=== PATIENT | male | born 1975 | race Caucasian/White ===

== ENCOUNTER 2018-08-04 23:18 | Emergency (ER) | payer SELFPAY ==
[~2018-08-04] VITALS: Ht 167.6 cm; Wt 100.0 kg
[2018-08-05] MEDS ORDERED: KETOROLAC 60MG/2ML VIAL IM STA (01:05)
[2018-08-05] MEDS ORDERED: TETANUS, DIPHTHERIA, PERTUSSIS VAC/PF 0.5ML (>7YR OLD) IM ONE (01:15)
[2018-08-05] MEDS ORDERED: LIDOCAINE 1%/EPI 1:100,000 10 ML VIAL IJ ONE (01:15)
[2018-08-05] MEDS ORDERED: BACITRACIN ZINC OINT UDPKT TOP ONE ×2 (01:15)
[2018-08-05] MEDS ORDERED: LIDOCAINE HCL/EPINEPHRINE 1%-EPI 1:100,000 20 ML VIAL INFIL SCH (01:33)
[2018-08-05] MEDS ORDERED: HYDROCODONE/ACETAMINOPHEN 5/325MG TABLET PO STA (04:49)
[2018-08-05 06:24] VITALS: BP 133/76
== END 2018-08-05 06:44 | disposition home or self-care (01) ==
LOC: ER 23:18
DX: L02.31 Cutaneous abscess of buttock (principal); E11.9 Type 2 diabetes mellitus without complications; F12.10 Cannabis abuse, uncomplicated; Z98.890 Other specified postprocedural states
CPT/HCPCS: 10060; 90471; 90715; 96372; 99283; J1885; J3490

== ENCOUNTER 2019-05-10 11:41 | Emergency (ER) | payer SELFPAY ==
[~2019-05-10] VITALS: Ht 172.7 cm; Wt 85.0 kg
[2019-05-10] MEDS ORDERED: SODIUM CHLORIDE 0.9% 1,000 ML IV ONE ×2 (13:09→15:08)
[2019-05-10 13:47] LABS: BG BASE EXCESS -2.3 mmol/L (-2.0-2.0); BG CARBOXYHEMOGLOBIN 1.5 % (0.5-1.5); BG DEOXYHEMOGLOBIN 2.6 % (0.0-5.0); BG FRACTION INSPIRED OXYGEN 21; BG HCO3 ACT 21.9 mmol/L (22.0-26.0); BG METHEMOGLOBIN 0.1 % (0.0-1.5); BG OXYGEN SATURATION 97.4 % (92.0-98.5); BG OXYHEMOGLOBIN 95.8 % (94.0-97.0); BG PCO2 36.1 mmHg (35.0-45.0); BG PO2 90.7 mmHg (75.0-100.0); BG SAMPLE SITE RIGHT RADIAL; BG TOTAL HEMOGLOBIN 15.4 g/dL (12.0-18.0); BG VENT MODE ROOM AIR
[2019-05-10 13:54] LABS: BASOPHILS % 0.8 % (0.0-2.0); EOSINOPHILS % 2.4 % (0.0-5.0); HEMATOCRIT. 44.2 % (42.0-52.0); HEMOGLOBIN. 15.6 g/dL (14.0-18.0); LYMPHOCYTES % 24.9 % (20.0-50.0); MEAN CORPUSCULAR HEMOGLOBIN 30.3 pg (28.0-32.0); MEAN PLATELET VOLUME 7.4 fl (7.4-10.4); MONOCYTES % 4.5 % (2.0-8.0); NEUTROPHILS % 67.4 % (40.0-76.0); PLATELET 268 x1000/uL (130-400); RED BLOOD CELL COUNT 5.14 mill/uL (4.7-6.1)
[2019-05-10 14:03] LABS: CHLORIDE 100 mEq/L (98-107)
[2019-05-10 14:07] LABS: AMYLASE 29 IU/L (25-115)
[2019-05-10] MEDS ORDERED: KETOROLAC 30MG/ML VIAL IV ONE (14:15)
[2019-05-10 14:16] LABS: BETA HYDROXYBUTYRATE 2.1 mMol/L (0.0-0.3)
[2019-05-10] MEDS ORDERED: INSULIN REGULAR (HUMULIN R) UD 100 UNITS/ML SYR IV ONE (15:15)
[2019-05-10 15:42] LABS: CLARITY URINE CLEAR (CLEAR); COLOR URINE YELLOW (YELLOW); KETONES URINE 3+ (NEGATIVE); LEUKOCYTE ESTERASE URINE NEGATIVE (NEGATIVE); NITRITE URINE NEGATIVE (NEGATIVE); OCCULT BLOOD URINE NEGATIVE (NEGATIVE); PROTEIN URINE TRACE (NEGATIVE); SPECIFIC GRAVITY URINE 1.038 (1.005-1.030); UROBILINOGEN URINE 0.2 E.U./dL (0.2-1.0)
[2019-05-10] MEDS ORDERED: INSULIN REGULAR (HUMULIN R) 300UNITS/3ML IV ONE (15:45)
[2019-05-10 17:23] VITALS: BP 125/85
== END 2019-05-10 18:33 | disposition home or self-care (01) ==
LOC: ER 12:12 → CANBEDREQ 20:00
DX: E11.65 Type 2 diabetes mellitus with hyperglycemia (principal); M25.561 Pain in right knee; R53.1 Weakness; Z79.4 Long term (current) use of insulin; Z59.0 Homelessness; F12.90 Cannabis use, unspecified, uncomplicated
CPT/HCPCS: 36415; 36600; 71045; 80053; 81003; 82010; 82150; 82375; 82805; 82962; 83690; 84484; 85025; 93005; 96361; 96374; 96375; 99284; J1815; J1885; J7030

== ENCOUNTER 2019-06-08 18:11 | Emergency (ER) | payer SELFPAY ==
[~2019-06-08] VITALS: Ht 172.7 cm; Wt 72.0 kg
[2019-06-08] MEDS ORDERED: SODIUM CHLORIDE 0.9% 1,000 ML IV ONE (18:48)
[2019-06-08 19:04] LABS: BASOPHILS % 1.1 % (0.0-2.0); EOSINOPHILS % 7.5 % (0.0-5.0); HEMATOCRIT. 40.5 % (42.0-52.0); HEMOGLOBIN. 14.5 g/dL (14.0-18.0); LYMPHOCYTES % 26.8 % (20.0-50.0); MEAN CORPUSCULAR HEMOGLOBIN 31.1 pg (28.0-32.0); MEAN CORPUSCULAR VOLUME 86.6 fL (80.0-94.0); MEAN PLATELET VOLUME 7.2 fl (7.4-10.4); MONOCYTES % 7.5 % (2.0-8.0); NEUTROPHILS % 57.1 % (40.0-76.0); PLATELET 267 x1000/uL (130-400); RED BLOOD CELL COUNT 4.67 mill/uL (4.7-6.1); RED CELL DISTRIBUTION WIDTH 13.8 % (11.6-14.6)
[2019-06-08 19:08] LABS: CHLORIDE 98 mEq/L (98-107)
[2019-06-08 19:11] LABS: AMYLASE 18 IU/L (25-115); ETHANOL BLOOD < 10 mg/dL
[2019-06-08 19:16] LABS: BETA HYDROXYBUTYRATE 0.2 mMol/L (0.0-0.3)
[2019-06-08] MEDS ORDERED: INSULIN REGULAR (HUMULIN R) 300UNITS/3ML IV ONE (20:15)
[2019-06-08] MEDS ORDERED: INSULIN REGULAR (HUMULIN R) 300UNITS/3ML SUBCUT ONE (20:15)
[2019-06-08] MEDS ORDERED: ACETAMINOPHEN 325MG TABLET PO ONE (21:00)
[2019-06-09 04:04] VITALS: BP 129/88
== END 2019-06-09 06:19 | disposition home or self-care (01) ==
LOC: ER 18:11
DX: E11.65 Type 2 diabetes mellitus with hyperglycemia (principal); Z79.4 Long term (current) use of insulin; Z59.0 Homelessness
CPT/HCPCS: 36415; 80053; 80320; 82010; 82150; 82962; 83690; 84484; 85025; 93005; 96361; 96372; 96374; 99284; J1815; J7030; G0480

== ENCOUNTER 2021-03-14 10:11 | Emergency (ER) | payer MEDICAID ==
[~2021-03-14] VITALS: Ht 167.6 cm; Wt 79.0 kg
[~2021-03-14 10:11] MED LIST: AMOX-424 MT; INSLIS SUBCUT; LANTUSUD SUBCUT
[2021-03-14 11:50] LABS: BASOPHILS % 0.9 % (0.0-2.0); EOSINOPHILS % 2.3 % (0.0-5.0); HEMATOCRIT. 33.5 % (42.0-52.0); HEMOGLOBIN. 11.5 g/dL (14.0-18.0); LYMPHOCYTES % 22.6 % (20.0-50.0); MEAN CORPUSCULAR HEMOGLOBIN 28.4 pg (28.0-32.0); MEAN CORPUSCULAR VOLUME 82.9 fL (80.0-94.0); MEAN PLATELET VOLUME 6.4 fl (7.4-10.4); MONOCYTES % 5.3 % (2.0-8.0); NEUTROPHILS % 68.9 % (40.0-76.0); PLATELET 292 x1000/uL (130-400); RED BLOOD CELL COUNT 4.04 mill/uL (4.7-6.1)
[2021-03-14 11:55] LABS: CHLORIDE 106 mEq/L (98-107)
[2021-03-14 11:58] LABS: PARTIAL THROMBOPLASTIN TIME 29.3 sec (23.4-31.0); PROTHROMBIN TIME 10.8 sec (9.6-11.0)
[2021-03-14] MEDS ORDERED: ACETAMINOPHEN 325MG TABLET PO ONE (14:00)
[2021-03-14] MEDS ORDERED: IBUPROFEN 400MG TABLET PO ONE (14:00)
[2021-03-14 15:00] VITALS: BP 171/103
== END 2021-03-14 16:07 | disposition home or self-care (01) ==
LOC: ER 10:11
DX: R60.9 Edema, unspecified (principal); A15.0 Tuberculosis of lung; I87.2 Venous insufficiency (chronic) (peripheral); G31.84 Mild cognitive impairment of uncertain or unknown etiology; E11.9 Type 2 diabetes mellitus without complications; Z79.4 Long term (current) use of insulin; Z98.890 Other specified postprocedural states
CPT/HCPCS: 36415; 71045; 80048; 80076; 83880; 84484; 85025; 93005; 99285